=== PATIENT | female | born 2000 | race Two or more races ===

== ENCOUNTER → 2023-09-03 | Emergency (ER) | payer OTHER ==
[~2023-09-03] VITALS: Ht 152.4 cm; Wt 52.2 kg
[~2023-09-03] MED LIST: ACETAMINOPHEN 500 MG GEL..CAP PO STA; DEXAMETHASONE SODIUM PHOSPHATE 4 MG/ML VIAL IM STA; KETOROLAC TROMETHAMINE 60 MG VIAL IM STA
== END | disposition home or self-care (01) ==
LOC: ER 00:17
DX: K02.9 Dental caries, unspecified (principal); Z91.013 Allergy to seafood